=== PATIENT | female | born 1935 | race Caucasian/White ===

== ENCOUNTER 2016-08-29 18:00 | Emergency (ER) | payer MEDICARE, BC, MEDICAID ==
--- NOTE | 2016-08-29 19:16 | Emergency Department Record ---
History of Present Illness - General Chief complaint: Extremity Problem Stated complaint: L ARM INJURY/ FALL Time Seen by Provider: 08/29/16 19:07 Source: Patient Mode of Arrival: Ambulatory Limitations: No limitations - History of Present Illness Initial comments: pt lost footing and fell onto l side. pt denies other injury except l arm and l knee. pt denies hitting head. pt is able to ambulate without difficulty. pt has pain at l elbow MD Complaint: Extremity pain, Extremity swelling Onset/Timin -: Hour(s) Location: Left, Elbow, Hand, Knee History of Same: No Radiation: Distal Severity scale (1-10): 4 Quality: Aching Consistency: Constant Improves with: Nothing Worsens with: Nothing Associated Symptoms: Denies other symptoms - Related Data Home Medications Medication Instructions Recorded Confirmed Last Taken Aspirin, Regular 81 mg PO DAILY 11/30/13 08/29/16 08/29/16 Isosorbide Mononitrate [Imdur] 30 mg PO DAILY 11/30/13 08/29/16 08/29/16 Levothyroxine Sodium [Levoxyl] 50 mcg PO DAILY 11/30/13 08/29/16 08/29/16 Pantoprazole Sodium 40 mg PO DAILY 11/30/13 08/29/16 08/29/16 Psyllium Seed (with Sugar) 1 each PO DAILY 11/30/13 08/29/16 08/29/16 [Metamucil Fiber Wafer] Atorvastatin Calcium 40 mg PO QHS 02/19/15 08/29/16 08/28/16 Calcium Phosphate Trib/Vit D3 1 each PO DAILY 02/19/15 08/29/16 08/29/16 [Citracal + D3 Gummies] Multivit-Min/FA/Ca Carb/Vit K 1 each PO DAILY 02/19/15 08/29/16 08/29/16 [Women's 50+ Daily Tablet] Nitroglycerin [Nitrostat] 0.4 mg SL ASDIR PRN 02/19/15 08/29/16 08/29/16 Fluticasone/Salmeterol [Advair 1 each INH DAILY #180 01/17/16 08/29/16 08/29/16 250-50 Diskus] Previous Rx's Medication Instructions Recorded Hydrocodone/Acetaminophen [[place] 0.5 - 1 tab PO TID PRN #10 tab 08/29/16 5mg/325mg] Allergies Allergy/AdvReac Type Severity Reaction Status Date / Time codeine [CODEINE] Allergy Severe HIVES Verified 08/29/16 18:14 tomato Allergy Severe HIVES Verified 08/29/16 18:14 chocolate flavor Allergy Mild RASH Verified 08/29/16 18:14 strawberry [[place]] Allergy Mild RASH Verified 08/29/16 18:14 Travel Screening - Travel/Exposure Within Last 30 Days Have you traveled within the last 30 days?: No Review of Systems Reviewed: No additional complaints except as noted below Constitutional: Reports: As per HPI. Denies: Chills, Fever, Malaise, Night sweats, Weakness, Weight change Eyes: Reports: As per HPI. Denies: Eye discharge, Eye pain, Photophobia, Vision change ENT: Reports: As per HPI. Denies: Congestion, Dental pain, Ear pain, Epistaxis , Hearing loss, Throat pain Respiratory: Reports: As per HPI. Denies: Cough, Dyspnea, Hemoptysis, Stridor, Wheezes Cardiovascular: Reports: As per HPI. Denies: Arrhythmia, Chest pain, Dyspnea on exertion, Edema, Murmurs, Orthopnea, Palpitations, Paroxysmal nocturnal dyspnea, Rheumatic Fever, Syncope Endocrine: Reports: As per HPI. Denies: Fatigue, Heat or cold intolerance, Polydipsia, Polyuria Gastrointestinal: Reports: As per HPI. Denies: Abdominal pain, Constipation, Diarrhea, Hematemesis, Hematochezia, Melena, Nausea, Vomiting Genitourinary: Reports: As per HPI. Denies: Abnormal menses, Discharge, Dyspareunia, Dysuria, Frequency, Hematuria, Incontinence, Retention, Urgency Musculoskeletal: Reports: As per HPI. Denies: Arthralgia, Back pain, Gout, Joint swelling, Myalgia, Neck pain Skin: Reports: As per HPI. Denies: Bruising, Change in color, Change in hair/ nails, Lesions, Pruritus, Rash Neurological: Reports: As per HPI. Denies: Abnormal gait, Confusion, Headache, Numbness, Paresthesias, Seizure, Tingling, Tremors, Vertigo, Weakness Psychiatric: Reports: As per HPI. Denies: Anxiety, Auditory hallucinations, Depression, Homicidal thoughts, Suicidal thoughts, Visual hallucinations Hematological/Lymphatic: Reports: As per HPI. Denies: Anemia, Blood Clots, Easy bleeding, Easy bruising, Swollen glands Past Medical History - SOCIAL HISTORY Smoking Status: Never smoker Alcohol Use: None Drug Use: None - RESPIRATORY Hx Respiratory Disorders: Yes Hx Asthma: Yes - CARDIOVASCULAR Hx Cardio Disorders: Yes Hx Chest Pain: Yes (2 years ago) - NEURO Hx Neuro Disorders: No - GI Hx GI Disorders: Yes Hx Reflux: Yes - Hx Genitourinary Disorders: No - ENDOCRINE Hx Endocrine Disorders: Yes Hx Thyroid Disease: Yes - MUSCULOSKELETAL Hx Musculoskeletal Disorders: Yes Hx Arthritis: Yes Hx Osteoporosis: Yes - PSYCH Hx Psych Problems: No - HEMATOLOGY/ONCOLOGY Hx Hematology/Oncology Disorders: No Family Medical History Any Significant Family History?: No Physical Exam - General General Appearance: Alert, Oriented x3, Cooperative, Mild distress - Head Head exam: Normal inspection - Eye Eye exam: Normal appearance, PERRL, EOMI Pupils: Normal accommodation - ENT ENT exam: Normal exam, Mucous membranes moist, Normal external ear exam, Normal orophraynx Ear exam: Normal external inspection. negative: External canal tenderness Nasal Exam: Normal inspection. negative: Discharge, Sinus tenderness Mouth exam: Normal external inspection, Tongue normal Teeth exam: Normal inspection. negative: Dental caries Throat exam: Normal inspection. negative: Tonsillar erythema, Tonsillar exudate - Neck Neck exam: Normal inspection, Full ROM. negative: Tenderness - Respiratory Respiratory exam: Normal lung sounds bilaterally. negative: Respiratory distress - Cardiovascular Cardiovascular Exam: Regular rate, Normal rhythm, Normal heart sounds - GI/Abdominal GI/Abdominal exam: Soft, Normal bowel sounds. negative: Tenderness - Rectal Rectal exam: Deferred - exam: Deferred - Extremities Extremities exam: Normal capillary refill, Tenderness. negative: Full ROM Image of Full Body: 1 - tender, swelling, ecchymosis 2 - abrasions - Back Back exam: Reports: Normal inspection, Full ROM. Denies: Muscle spasm, Rash noted, Tenderness - Neurological Neurological exam: Alert, CN II-XII intact, Normal gait, Oriented X3 - Psychiatric Psychiatric exam: Normal affect, Normal mood - Skin Skin exam: Dry, Intact, Normal color, Warm Course Vital Signs 08/29/16 18:09 Temperature 97.7 F Pulse Rate 79 Respiratory 20 Rate Blood Pressure 123/79 Pulse Ox 96 - Reevaluation(s) Reevaluation #1: 08/29/16 20:57 d/w dr canchola Medical Decision Making - Data Complexity MDM Data: X-Ray Ordered and/or Reviewed - Radiology Data Radiology results: Report reviewed, Image reviewed Disposition Disposition: Discharge Clinical Impression: Closed olecranon fracture Qualifiers: Encounter type: initial encounter Laterality: left Qualified Code(s): S52.022A - Displaced fracture of olecranon process without intraarticular extension of left ulna, initial encounter for closed fracture Disposition: Home, Self-Care Condition: (1) Good Instructions: Elbow Fracture in Adults (ED) Additional Instructions: follow up with dr canchola on . ice and elevate. return sooner if worse Prescriptions: Hydrocodone/Acetaminophen [[place] 5mg/325mg] 0.5 - 1 tab PO TID PRN #10 tab PRN Reason: Pain - General Referrals: DINORAH CANCHOLA [DOCTOR OF OSTEOPATH] - [facility] [Provider Group] Forms: Patient Portal Access
[2016-08-29] MEDS: HYDROCODONE/APAP 5/325MG TABLET PO ONE (20:40)
--- NOTE | 2016-09-01 07:28 | RADIOLOGY REPORT ---
EXAM: LEFT ELBOW HISTORY: PATIENT HAS A HISTORY OF FALL. TECHNIQUE: Three views of the left elbow are provided without comparison studies. FINDINGS: There is an oblique fracture through the left olecranon process with approximately 2.4 mm posterior and proximal distraction of the proximal olecranon fracture fragment. Extension to the articular surface is noted. No obvious radial head fracture is noted. The humeral condyles appear grossly intact. Calcified curvilinear density adjacent to the medial epicondyle likely represents an enthesophyte. There is an oval, 1.7 cm density in the region of the antecubital fossa. I suspect this likely represents an intraarticular loose body. Extensive soft tissue swelling is noted over the olecranon process. IMPRESSION: POST TRAUMATIC CHANGES OF THE LEFT ELBOW ARE NOTED DESCRIBED. JOB NUMBER: [id number] [facility]
== END 2016-08-29 21:53 | disposition home or self-care (01) ==
LOC: ER 18:00
DX: S52.022A Displaced fracture of olecranon process without intraarticular extension of left ulna, initial encounter for closed fracture (principal); S80.212A Abrasion, left knee, initial encounter; M79.642 Pain in left hand; W18.09XA Striking against other object with subsequent fall, initial encounter
CPT/HCPCS: 99283; 99284

== ENCOUNTER 2016-09-05 09:02 | Day surgery (SDC) | payer MEDICARE, BC, MEDICAID ==
[~2016-09-05 09:02] MED LIST: ACETAMINOPHEN 1000MG/100 ML PREMIX IV ONE; CEFAZOLIN 1 Gram 50 ML IVPB ONE
[2016-09-05 09:12] LABS: BASO % 0.5 % (0-6); EOS % 3.4 % (0-6); GRAN % 68.8 % (47-80); HEMATOCRIT 43.9 % (35.0-47.0); HEMOGLOBIN 14.8 gm/dl (11.6-16.0); LYMPH % 14.9 % (16-45); MEAN CELL VOLUME 91.8 fl (81-97); MEAN CORPUSCULAR HGB CONC 33.7 g/dl (32-36); MEAN PLATELET VOLUME 10.8 fl (7.4-10.4); MONO % 12.4 % (0-9); PLATELET COUNT 253 K/uL (130-400); RED BLOOD COUNT 4.78 M/uL (3.80-5.40); RED CELL DISTRIBUTION WIDTH 14.2 % (11.5-14.5); WHITE BLOOD COUNT W/O DIFF 9.3 K/uL (4.2-12.2)
[2016-09-05 09:26] LABS: ANION GAP 6.1 (7-16); BLOOD UREA NITROGEN 10 mg/dL (7-17); CARBON DIOXIDE 32.9 mmol/L (22-30); CREATININE 0.7 mg/dL (0.52-1.04); EST GLOMERULAR FILTRATION RATE > 60 ml/min; GLUCOSE,RANDOM 109 mg/dL (70-110)
[2016-09-05] MEDS ORDERED: MORPHINE SULFATE 5 MG/ML PFS IVP ONE ×2 (15:36→15:43)
[2016-09-05] MEDS ORDERED: HYDROCODONE/APAP 5/325MG TABLET PO ONE (15:36)
[2016-09-05] MEDS ORDERED: ONDANSETRON HCL IV 4 MG/2 ML VIAL IVP ONE (15:43)
[2016-09-05] MEDS ORDERED: SEVOFLURANE 250 ML INH ONE (15:43)
[2016-09-05] MEDS ORDERED: PROPOFOL 10 MG/ML VIAL IV ONE (15:43)
[2016-09-05] MEDS ORDERED: MIDAZOLAM HCL 2MG/2ML VIAL IV ONE (15:43)
[2016-09-05] MEDS ORDERED: LIDOCAINE 2% MDV (20MG/ML) 20ML VIAL IV ONE (15:43)
[2016-09-05] MEDS ORDERED: FENTANYL PF 100MCG/2ML VIAL IV ONE (15:43)
--- NOTE | 2016-09-07 11:46 | Operative Note ---
DATE OF SURGERY: 09/05/2016 SURGEON: Andres Martinez DO REFERRING PHYSICIAN: Monica Gurrola MD PREOPERATIVE DIAGNOSIS: Displaced fracture of the left olecranon process of the ulna. POSTOPERATIVE DIAGNOSIS: Displaced fracture of the left olecranon process of the ulna. OPERATION: Open reduction internal fixation left ulna olecranon process. Anesthesia: General. PROCEDURE: This 81-year-old female was taken to the operating room, placed in the supine position on the operating room table. A general anesthetic was administered, and the left upper extremity was elevated. It was prepped with Hibiclens and draped in the usual sterile fashion. It was exsanguinated and the tourniquet inflated to 250 mmHg. An incision was made following the dorsal surface of the ulna to the olecranon and it was curved around the olecranon process. It then extended proximally to the displaced fracture fragment. This was easily identified of course, and it was irrigated and curetted; a large clot removed from the joint. I attempted to reach around to mobilize the loose joint body, but was not able to do so, and it was not further disturbed. The wound was copiously irrigated with lactated Ringer's solution. The edges of the fracture cleaned out by removing debris and a bone clamp was used to reduce the fracture. With the bone clamp held in place and the fracture reduced, a guidewire was passed from the olecranon into the shaft of the proximal ulna. The image intensifier was used to confirm its position. Once this was determined to be satisfactory, the length was measured and a 75 mm cortical screw was advanced across the fracture site. Again, the image intensifier was used to confirm the position and alignment of the fracture fragments, and the fracture was found to be reduced. A #5 FiberWire was used as a [id number] tension band, by making two drill holes on either side of the ulnar shaft, and the suture was passed around the washer, as well as through the holes and a tension band technique was accomplished. This was then tied securely for added support. The wound was again copiously irrigated with lactated Ringer's solution. The subcutaneous tissue was closed with 4-0 Vicryl and the skin with a running 3-0 nylon suture. Sterile dressings were applied with plaster splint immobilization with the elbow at approximately 90 to 100 degrees and the forearm in neutral position. With the plaster splint applied after the sterile dressings, the patient was then taken to the recovery room in satisfactory condition. GROSS PATHOLOGY: This patient actually had a comminuted fracture of the olecranon process. This fracture did have multiple pieces. She had of course, osteopenic bone as one would expect, but the fracture fragments were maintained in anatomic position with the use of the 7.5 mm Synthes screw and [id number] tension band FiberWire. EMELINA
== END 2016-09-05 13:05 | disposition home or self-care (01) ==
LOC: SUR 09:02
PROVIDERS: ATTEND Orthopaedic Surgery
DX: S52.022A Displaced fracture of olecranon process without intraarticular extension of left ulna, initial encounter for closed fracture (principal); E78.00 Pure hypercholesterolemia, unspecified
CPT/HCPCS: 76000; 80048; 85025; J2405

== ENCOUNTER 2016-11-16 13:05 | Emergency (ER) | payer MEDICARE, BC, MEDICAID ==
--- NOTE | 2016-11-16 13:22 | Emergency Department Record ---
History of Present Illness - General Chief complaint: Nausea, Vomiting, Diarrhea Stated complaint: VOMITING,NAUSEA Time Seen by Provider: 11/16/16 13:22 Source: Patient Mode of Arrival: Ambulatory Limitations: No limitations - History of Present Illness Initial comments: The patient is here due to a 2 days hx of nausea, vomiting and loose stools. She was much worse yesterday than today. Presently the nausea has resolved and she denies any abdominal pain. She only reports one episode of vomiting and loost stool early this morning and none since. There has been no abdominal pain , fever, chills, back pain, CP, SOB, or dysuria. MD complaint: Diarrhea, Nausea, Vomiting Onset/Timin -: Days(s) Consistency: Intermittent Improves with: Medication Associated Symptoms: Nausea/vomiting - Related Data Home Medications Medication Instructions Recorded Confirmed Last Taken Aspirin, Regular 81 mg PO DAILY 11/30/13 11/16/16 11/16/16 Isosorbide Mononitrate [Imdur] 30 mg PO DAILY 11/30/13 11/16/16 11/16/16 Levothyroxine Sodium [Levoxyl] 50 mcg PO DAILY 11/30/13 11/16/16 11/16/16 Pantoprazole Sodium 40 mg PO DAILY 11/30/13 11/16/16 11/16/16 Psyllium Seed (with Sugar) 1 each PO DAILY 11/30/13 11/16/16 11/16/16 [Metamucil Fiber Wafer] Atorvastatin Calcium 40 mg PO QHS 02/19/15 11/16/16 11/16/16 Calcium Phosphate Trib/Vit D3 1 each PO DAILY 02/19/15 11/16/16 11/16/16 [Citracal + D3 Gummies] Multivit-Min/FA/Ca Carb/Vit K 1 each PO DAILY 02/19/15 11/16/16 11/16/16 [Women's 50+ Daily Tablet] Nitroglycerin [Nitrostat] 0.4 mg SL ASDIR PRN 02/19/15 11/16/16 11/16/16 Fluticasone/Salmeterol [Advair 1 each INH DAILY #180 01/17/16 11/16/16 11/16/16 250-50 Diskus] Previous Rx's Medication Instructions Recorded Hydrocodone/Acetaminophen [[place] 0.5 - 1 tab PO TID PRN #10 tab 08/29/16 5mg/325mg] Nitrofurantoin [place] [Macrobid] 100 mg PO BID #10 capsule 11/16/16 Ondansetron [Zofran Odt] 4 mg SL .Q4-6H PRN #12 tab.rapdis 11/16/16 Allergies Allergy/AdvReac Type Severity Reaction Status Date / Time codeine [CODEINE] Allergy Severe HIVES Verified 11/16/16 13:12 tomato Allergy Severe HIVES Verified 11/16/16 13:12 chocolate flavor Allergy Mild RASH Verified 11/16/16 13:12 strawberry [[place]] Allergy Mild RASH Verified 11/16/16 13:12 Travel Screening - Travel/Exposure Within Last 30 Days Have you traveled within the last 30 days?: No - Travel/Exposure Within Last Year Have you traveled outside the [place] 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[facility]) 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,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) - NEURO Hx Neuro Disorders: No Hx Neuropathy: Yes (occas numbness in left hand) - GI Hx GI Disorders: Yes Hx Reflux: Yes Hx Hepatitis/Jaundice: Yes (age 20s-"yellow jaundice") Hx of Polyps: Yes - Hx Genitourinary Disorders: No - ENDOCRINE Hx Endocrine Disorders: Yes Hx Thyroid Disease: Yes (hypoactive) - MUSCULOSKELETAL Hx Musculoskeletal Disorders: Yes Hx Arthritis: Yes (arms/hands) Hx Osteoporosis: Yes Comment:: fx left elbow now - PSYCH Hx Psych Problems: No - HEMATOLOGY/ONCOLOGY Hx Hematology/Oncology Disorders: No Family Medical History Any Significant Family History?: Yes Hx Resp Disorders: Father, Mother Physical Exam - General General Appearance: Alert, Oriented x3, Cooperative, No acute distress - Head Head exam: Atraumatic, Normocephalic, Normal inspection - Eye Eye exam: Normal appearance, PERRL - ENT Throat exam: Normal inspection. negative: Tonsillar erythema, Tonsillar exudate - Neck Neck exam: Normal inspection, Full ROM. negative: Tenderness - Respiratory Respiratory exam: Normal lung sounds bilaterally. negative: Respiratory distress - Cardiovascular Cardiovascular Exam: Regular rate, Normal rhythm, Normal heart sounds - GI/Abdominal GI/Abdominal exam: Soft, Normal bowel sounds. negative: Distended, Rebound, Rigid, Tenderness (The abdomen is very soft and nontender in all 4 quads.) - Extremities Extremities exam: Normal inspection, Full ROM, Normal capillary refill. negative: Tenderness - Neurological Neurological exam: Normal gait. negative: Abnormal gait Course Vital Signs 11/16/16 13:15 Temperature 99.1 F Pulse Rate 119 H Respiratory 20 Rate Blood Pressure 139/88 Pulse Ox 94 L - Reevaluation(s) Reevaluation #1: The patient is feeling better. She denies any nausea or AP and is feeling much improved. 11/16/16 14:17 Reevaluation #2: The patient is doing much better at this time. She denies any AP, nausea, or vomiting and is taking PO fluids well. I did discuss her lab results with her and the need for F/U. Her UA did have some WBC's in it but it was clearly contaminated. We will place her on macrobid for a presumed mild UTI and have her F/U with her PCP next week. 11/16/16 15:11 Medical Decision Making - Data Complexity MDM Data: Labs Ordered and/or Reviewed - Lab Data Result diagrams: 11/16/16 13:40 11/16/16 13:40 Disposition Disposition: Discharge Clinical Impression: Gastroenteritis Disposition: Home, Self-Care Condition: (2) Stable Instructions: Acute Nausea and Vomiting (ED) Additional Instructions: Please use the Zofran for nausea and take the Macrobid as directed. Please see your PCP early next week for recheck and call today for an appointment. Return to the ER for any increased nausea, any abdominal pain or return of the vomiting. Prescriptions: Nitrofurantoin [place] [Macrobid] 100 mg PO BID #10 capsule Ondansetron [Zofran Odt] 4 mg SL .Q4-6H PRN #12 tab.rapdis PRN Reason: Nausea Forms: Patient Portal Access Time of Disposition: 15:14
[2016-11-16] MEDS ORDERED: ONDANSETRON HCL IV 4 MG/2 ML VIAL IV ONE (13:27)
[2016-11-16] MEDS ORDERED: 0.9 % SODIUM CHLORIDE 1,000 ML BAG IV ONE (13:27)
[2016-11-16 13:47] LABS: BASO % 0.3 % (0-6); EOS % 0.1 % (0-6); GRAN % 80.9 % (47-80); HEMATOCRIT 45.9 % (35.0-47.0); HEMOGLOBIN 15.4 gm/dl (11.6-16.0); LYMPH % 5.9 % (16-45); MEAN CELL VOLUME 89.3 fl (81-97); MEAN CORPUSCULAR HGB CONC 33.6 g/dl (32-36); MEAN PLATELET VOLUME 11.1 fl (7.4-10.4); MONO % 12.8 % (0-9); PLATELET COUNT 188 K/uL (130-400); RED BLOOD COUNT 5.14 M/uL (3.80-5.40); RED CELL DISTRIBUTION WIDTH 13.2 % (11.5-14.5); WHITE BLOOD COUNT W/O DIFF 7.9 K/uL (4.2-12.2)
[2016-11-16 14:00] LABS: ALBUMIN 4.1 gm/dL (3.5-5.0); ALKALINE PHOSPHATASE 102 U/L (38-126); ALT/SGPT 47 U/L (9-52); ANION GAP 9.7 (7-16); AST/SGOT 43 U/L (14-36); BLOOD UREA NITROGEN 16 mg/dL (7-17); CARBON DIOXIDE 25.3 mmol/L (22-30); CREATININE 0.7 mg/dL (0.52-1.04); EST GLOMERULAR FILTRATION RATE > 60 ml/min; GLUCOSE,RANDOM 125 mg/dL (70-110); LIPASE 59 U/L (23-300); TOTAL PROTEIN 6.9 gm/dL (6.3-8.2)
[2016-11-16] MEDS ORDERED: ACETAMINOPHEN 325 MG TAB PO ONE (14:12)
[2016-11-16 14:45] LABS: URINE APPEARANCE CLEAR; URINE BILIRUBIN NEGATIVE (NEGATIVE); URINE BLOOD NEGATIVE (NEGATIVE); URINE COLOR YELLOW; URINE GLUCOSE (UA) NEGATIVE (NEGATIVE); URINE KETONE TRACE (NEGATIVE); URINE LEUKOCYTE ESTERASE SMALL (NEGATIVE); URINE NITRITE NEGATIVE (NEGATIVE); URINE PROTEIN TRACE (NEGATIVE); URINE UROBILINOGEN 0.2 E.U./dL (0.20 - 1.00)
[2016-11-16 14:55] LABS: URINE BACTERIA 1+; URINE MUCUS LIGHT; URINE RBC NONE SEEN (NONE SEEN); URINE WBC 36 - 50 (0-2/hpf)
[2016-11-16] MEDS ORDERED: NITROFURANTOIN MONO 100 MG CAPSULE PO ONE (15:08)
== END 2016-11-16 15:27 | disposition home or self-care (01) ==
LOC: ER 13:05
DX: R11.2 Nausea with vomiting, unspecified (principal); R19.7 Diarrhea, unspecified
CPT/HCPCS: 99284; 96374; 96361; 96367; 99283; 83690; 85025; 80076; 80048; 81001; J2405; J7030

== ENCOUNTER 2017-02-21 06:02 | Emergency (ER) | payer MEDICARE, BC ==
--- NOTE | 2017-02-21 06:16 | Emergency Department Record ---
History of Present Illness - General Chief complaint: ENT Stated complaint: EAR PAIN Time Seen by Provider: 02/21/17 06:14 Source: Patient Mode of Arrival: Ambulatory Limitations: No limitations - History of Present Illness Initial comments: The patient is here due to L ear pain for a day. She believes she has a piece of her hearing aid stuck in her L ear. She denies any other issues. MD complaint: Ear pain Onset/Timin -: Days(s) Location: L ear Severity: Moderate Severity scale (1-10): 6 Consistency: Constant, Getting worse Improves with: None Worsens with: None - Related Data Allergies Allergy/AdvReac Type Severity Reaction Status Date / Time codeine [CODEINE] Allergy Severe HIVES Verified 11/16/16 13:12 tomato Allergy Severe HIVES Verified 11/16/16 13:12 chocolate flavor Allergy Mild RASH Verified 11/16/16 13:12 strawberry [[place]] Allergy Mild RASH Verified 11/16/16 13:12 Travel Screening - Travel/Exposure Within Last 30 Days Have you traveled within the last 30 days?: No Review of Systems Constitutional: Denies: Chills, Fever Past Medical History - SOCIAL HISTORY Smoking Status: Never smoker Alcohol Use: None Drug Use: None - RESPIRATORY Hx Respiratory Disorders: Yes Hx Asthma: Yes (well controlled) Hx Pneumonia: Yes (as baby) - CARDIOVASCULAR Hx Cardio Disorders: Yes Hx Chest Pain: Yes (-2yrs ago only -none since.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[facility]) 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,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) - NEURO Hx Neuro Disorders: No Hx Neuropathy: Yes (occas numbness in left hand) - GI Hx GI Disorders: Yes Hx Reflux: Yes Hx Hepatitis/Jaundice: Yes (age 20s-"yellow jaundice") Hx of Polyps: Yes - Hx Genitourinary Disorders: No - ENDOCRINE Hx Endocrine Disorders: Yes Hx Thyroid Disease: Yes (hypoactive) - MUSCULOSKELETAL Hx Musculoskeletal Disorders: Yes Hx Arthritis: Yes (arms/hands) Hx Osteoporosis: Yes Comment:: fx left elbow now - PSYCH Hx Psych Problems: No - HEMATOLOGY/ONCOLOGY Hx Hematology/Oncology Disorders: No Family Medical History Any Significant Family History?: Yes Hx Resp Disorders: Father, Mother Physical Exam - General General Appearance: Alert, Oriented x3, Cooperative, No acute distress - Head Head exam: Atraumatic, Normocephalic - Eye Eye exam: Normal appearance, PERRL - ENT ENT exam: negative: TM's normal bilaterally (There is a round hearing aid FB deep in the L ear canal. There are no signs of any infection.) Throat exam: Normal inspection. negative: Tonsillar erythema, Tonsillar exudate - Neck Neck exam: Normal inspection, Full ROM. negative: Tenderness Course Vital Signs 02/21/17 06:07 Temperature 97.4 F L Pulse Rate [ 80 Pulse Ox Probe] Respiratory 20 Rate Blood Pressure 149/79 [Right Arm] Pulse Ox 94 L - Reevaluation(s) Reevaluation #1: I did explain to the patient that due to the position of the FB and size we will not be able to get it out. She is to F/U with ENT for removal today and is to call [facility]. 02/21/17 06:23 Disposition Disposition: Discharge Clinical Impression: Ear foreign body Qualifiers: Encounter type: initial encounter Laterality: left Qualified Code(s): T16.2XXA - Foreign body in left ear, initial encounter Disposition: Home, Self-Care Condition: (2) Stable Instructions: Ear Foreign Body (ED) Additional Instructions: Please keep the L ear dry. Please call [facility] for an appointment to get the foreign body removed. Call [phone]. Forms: Patient Portal Access Time of Disposition: 06:25 Quality - Quality Measures Quality Measures: N/A - Blood Pressure Screening View Details: Yes Does Patient Have Any of the Following: No Blood Pressure Classification: Hypertensive Reading Systolic Measurement: 149 Diastolic Measurement: 79 Screening for High Blood Pressure: < Pre-Hypertensive BP, F/U Documented > [ [id number]] Pre-Hypertensive Follow-up Interventions: Referral to alternative/primary care provider.
== END 2017-02-21 06:37 | disposition home or self-care (01) ==
LOC: ER 06:02
DX: T16.2XXA Foreign body in left ear, initial encounter (principal)
CPT/HCPCS: 99282

== ENCOUNTER 2017-04-24 06:32 | Emergency (ER) | payer MEDICARE, BC ==
--- NOTE | 2017-04-24 07:36 | Emergency Department Record ---
History of Present Illness - General Chief Complaint: Fall Injury Stated Complaint: FALL Time Seen by Provider: 04/24/17 07:09 Source: Patient Mode of Arrival: Ambulatory Limitations: No limitations - History of Present Illness Initial Comments: pt fell in bathroom 6 hrs ago hitting back of head in [email or web address] loc. 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 Place Fall Occurred: Home Loss of Consciousness: Unsure Symptoms Prior to Fall: None Location: Head, Neck Location - Extremities: Left: Shoulder Severity: Mild Severity scale (1-10): 1 Context: Tripped/slipped - [place]indy Coma Scale Eye Response: (4) Open spontaneously Motor Response: (6) Obeys commands Verbal Response: (5) Oriented [place] Total: 15 - Related Data Allergies Allergy/AdvReac Type Severity Reaction Status Date / Time codeine [CODEINE] Allergy Severe HIVES Verified 04/24/17 06:42 tomato Allergy Severe HIVES Verified 04/24/17 06:42 chocolate flavor Allergy Mild RASH Verified 04/24/17 06:42 strawberry [[place]] Allergy Mild RASH Verified 04/24/17 06:42 Travel Screening - Travel/Exposure Within Last 30 Days Have you traveled within the last 30 days?: No Review of Systems Reviewed: No additional complaints except as noted below Constitutional: Reports: As per HPI. Denies: Chills, Fever, Malaise, Night sweats, Weakness, Weight change Eyes: Reports: As per HPI. Denies: Eye discharge, Eye pain, Photophobia, Vision change ENT: Reports: As per HPI. Denies: Congestion, Dental pain, Ear pain, Epistaxis , Hearing loss, Throat pain Respiratory: Reports: As per HPI. Denies: Cough, Dyspnea, Hemoptysis, Stridor, Wheezes Cardiovascular: Reports: As per HPI. Denies: Arrhythmia, Chest pain, Dyspnea on exertion, Edema, Murmurs, Orthopnea, Palpitations, Paroxysmal nocturnal dyspnea, Rheumatic Fever, Syncope Endocrine: Reports: As per HPI. Denies: Fatigue, Heat or cold intolerance, Polydipsia, Polyuria Gastrointestinal: Reports: As per HPI. Denies: Abdominal pain, Constipation, Diarrhea, Hematemesis, Hematochezia, Melena, Nausea, Vomiting Genitourinary: Reports: As per HPI. Denies: Abnormal menses, Discharge, Dyspareunia, Dysuria, Frequency, Hematuria, Incontinence, Retention, Urgency Musculoskeletal: Reports: As per HPI. Denies: Arthralgia, Back pain, Gout, Joint swelling, Myalgia, Neck pain Skin: Reports: As per HPI. Denies: Bruising, Change in color, Change in hair/ nails, Lesions, Pruritus, Rash Neurological: Reports: As per HPI. Denies: Abnormal gait, Confusion, Headache, Numbness, Paresthesias, Seizure, Tingling, Tremors, Vertigo, Weakness Psychiatric: Reports: As per HPI. Denies: Anxiety, Auditory hallucinations, Depression, Homicidal thoughts, Suicidal thoughts, Visual hallucinations Hematological/Lymphatic: Reports: As per HPI. 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) 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,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) - NEURO Hx Neuro Disorders: No Hx Neuropathy: Yes (occas numbness in left hand) - GI Hx GI Disorders: Yes Hx Reflux: Yes Hx Hepatitis/Jaundice: Yes (age 20s-"yellow jaundice") Hx of Polyps: Yes - Hx Genitourinary Disorders: No - ENDOCRINE Hx Endocrine Disorders: Yes Hx Thyroid Disease: Yes (hypoactive) - MUSCULOSKELETAL Hx Musculoskeletal Disorders: Yes Hx Arthritis: Yes (arms/hands) Hx Osteoporosis: Yes Comment:: fx left elbow now - PSYCH Hx Psych Problems: No - HEMATOLOGY/ONCOLOGY Hx Hematology/Oncology Disorders: No Family Medical History Any Significant Family History?: Yes Hx Resp Disorders: Father, Mother Physical Exam - General General Appearance: Alert, Oriented x3, Cooperative, Mild distress - Head Head exam: Normal inspection Head exam detail: Abrasion, General tenderness - Eye Eye exam: Normal appearance, PERRL Pupils: Normal accommodation - ENT ENT exam: Normal exam, Mucous membranes moist, Normal external ear exam, Normal orophraynx Ear exam: Normal external inspection. negative: External canal tenderness Nasal Exam: Normal inspection. negative: Discharge, Sinus tenderness Mouth exam: Normal external inspection, Tongue normal Teeth exam: Normal inspection. negative: Dental caries Throat exam: Normal inspection. negative: Tonsillar erythema, Tonsillar exudate - Neck Neck exam: Full ROM, Tenderness - Respiratory Respiratory exam: Normal lung sounds bilaterally. negative: Respiratory distress - Cardiovascular Cardiovascular Exam: Regular rate, Normal rhythm, Normal heart sounds - GI/Abdominal GI/Abdominal exam: Soft, Normal bowel sounds. negative: Tenderness - Rectal Rectal exam: Deferred - exam: Deferred - Extremities Extremities exam: Normal inspection, Full ROM, Normal capillary refill. negative: Tenderness - Back Back exam: Reports: Normal inspection, Full ROM. Denies: Muscle spasm, Rash noted, Tenderness - Neurological Neurological exam: Alert, Normal gait, Oriented X3, Reflexes normal - Psychiatric Psychiatric exam: Normal affect, Normal mood - Skin Skin exam: Dry, Intact, Normal color, Warm Course Vital Signs 04/24/17 06:36 Temperature 97.6 F Pulse Rate 80 Respiratory 14 Rate Blood Pressure 155/76 Pulse Ox 95 Disposition Disposition: Discharge Clinical Impression: Multiple contusions Head injury Qualifiers: Encounter type: initial encounter Qualified Code(s): S09.90XA - Unspecified injury of head, initial encounter Disposition: Home Health Service Condition: (1) Good Instructions: Fall Prevention for Older Adults (ED), Head Injury (ED), Contusion in Adults (ED) Additional Instructions: follow up with family doctor. return sooner if worse. Forms: Patient Portal Access Quality - Quality Measures Quality Measures: N/A - Blood Pressure Screening Does Patient Have Any of the Following: No Blood Pressure Classification: Hypertensive Reading Systolic Measurement: 155 Diastolic Measurement: 76 Screening for High Blood Pressure: < First Hypertensive BP, F/U Documented > [ [id number]] First Hypertensive Follow-up Interventions: Follow-up with rescreen GT 1 day and LT 4 weeks.
--- NOTE | 2017-04-24 15:10 | RADIOLOGY REPORT ---
EXAM: LEFT SHOULDER HISTORY: PATIENT FELL WITH LEFT SHOULDER PAIN. TECHNIQUE: Four views of the left shoulder were obtained. Comparison: None. Encounter: Initial. FINDINGS: There is advanced degenerative arthritis at the glenohumeral joint. Mild spurring at the acromioclavicular joint. No definite acute fracture or dislocation of the left shoulder identified. Diffuse osteopenia is seen consistent with osteoporosis. IMPRESSION: 1. ADVANCED DEGENERATIVE ARTHRITIS LEFT SHOULDER. 2. OSTEOPOROSIS. 3. NO DEFINITE FRACTURE IDENTIFIED. JOB [facility]BER: [id number] [facility]
--- NOTE | 2017-04-25 05:55 | CT SCAN REPORT ---
DATE: 04/24/2017 at 7:29 a.m. EXAM: HEAD CT. HISTORY: The patient fell with head and neck pain. Right-hand dominant. TECHNIQUE: Axial CT scan of the head performed without intravenous contrast. COMPARISON: Head CT dated 11/10/2009. FINDINGS: No definite acute intracranial hemorrhage identified. Some basal ganglia calcification is again seen. No focal mass effect or midline shift evident. Generalized atrophy with chronic-appearing deep white matter changes as before, nonspecific but likely representing some chronic small-vessel deep white matter ischemic disease. 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 No definite acute infarct or intracranial mass lesion seen. Deviation of the nasal septum to the right, probably with galen bullosa formation in the left middle turbinate. Mild membrane thickening posteriorly in the sphenoid sinus bilaterally. No depressed calvarial fracture is evident. IMPRESSION: 1. 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 2. NO DEFINITE ACUTE INTRACRANIAL HEMORRHAGE OR FOCAL MASS EFFECT IDENTIFIED. 3. MEMBRANE THICKENING IN THE SPHENOID SINUS POSTERIORLY BILATERALLY. 4. DEVIATION OF THE NASAL SEPTUM TO THE RIGHT WITH GALEN BULLOSA FORMATION OF THE LEFT MIDDLE TURBINATE. JOB NUMBER: [id number] [facility]
--- NOTE | 2017-04-25 21:24 | CT SCAN REPORT ---
EXAM: CT SCAN CERVICAL SPINE WO CONTRAST HISTORY: PATIENT FELL WITH NECK PAIN. TECHNIQUE: Axial CT scan of the entire cervical spine performed without IV contrast. COMPARISON: No cervical study with which to compare. ENCOUNTER: Initial. FINDINGS: No apical pneumothorax is evident. Some motion artifact is incidentally noted. No definite fracture of the cervical spine identified. No prevertebral soft tissue swelling is evident. There is fusion of the C2 and C3 vertebrae with a rudimentary C2-3 interspace. There is narrowing of the third through the sixth cervical interspaces with associated hypertrophic spurring and prominent facet joint arthropathy at multiple levels. There is some mild ligamentous calcification posteriorly in the neck. Prominent degenerative change at the odontoid-anterior arch of C1 articulation as well. Multilevel foraminal stenosis and there is mild central stenosis at the C3-4, C4-5, and C5- 6 levels. IMPRESSION: 1. NO DEFINITE FRACTURE OR PREVERTEBRAL SOFT TISSUE SWELLING SEEN IN THE CERVICAL SPINE. 2. MULTILEVEL DEGENERATIVE CHANGE IN THE CERVICAL SPINE. 3. FUSION OF THE C2-3 VERTEBRAE. JOB NUMBER: [id number] [facility]
== END 2017-04-24 09:17 | disposition home health service (06) ==
LOC: ER 06:32
DX: S09.90XA Unspecified injury of head, initial encounter (principal); M54.2 Cervicalgia; M25.512 Pain in left shoulder; W18.2XXA Fall in (into) shower or empty bathtub, initial encounter; Y92.002 Bathroom of unspecified non-institutional (private) residence as the place of occurrence of the external cause
CPT/HCPCS: 70450; 72125; 99283; 99284

== ENCOUNTER 2018-05-10 10:29 | Emergency (ER) | payer MEDICARE, BC ==
[2018-05-10] MEDS ORDERED: ACETAMINOPHEN 325 MG TAB PO ONE (11:19)
[2018-05-10 11:26] LABS: BASO % 0.5 % (0-6); EOS % 3.4 % (0-6); GRAN % 61.7 % (47-80); HEMATOCRIT 47.3 % (35.0-47.0); HEMOGLOBIN 15.8 gm/dl (11.6-16.0); LYMPH % 23.2 % (16-45); MEAN CELL VOLUME 89.6 fl (81-97); MEAN CORPUSCULAR HEMOGLOBIN 29.9 pg (27-33); MEAN CORPUSCULAR HGB CONC 33.4 g/dl (32-36); MEAN PLATELET VOLUME 11.6 fl (7.4-10.4); MONO % 11.2 % (0-9); PLATELET COUNT 218 K/uL (130-400); RED BLOOD COUNT 5.28 M/uL (3.80-5.40); WHITE BLOOD COUNT W/O DIFF 8.5 K/uL (4.2-12.2)
[2018-05-10 11:34] LABS: BLOOD UREA NITROGEN 12 mg/dL (8-23)
[2018-05-10 11:35] LABS: CREATININE 0.7 mg/dL (0.5-0.9); EST GLOMERULAR FILTRATION RATE > 60 mL/min; TOTAL PROTEIN 6.6 g/dL (6.6-8.7)
[2018-05-10 11:37] LABS: GLUCOSE,RANDOM 109 mg/dL (74-109)
--- NOTE | 2018-05-10 11:38 | Emergency Department Record ---
History of Present Illness - General Chief Complaint: Chest Pain Stated Complaint: CHEST PAIN Time Seen by Provider: 05/10/18 10:48 Source: Patient Mode of Arrival: Ambulatory Limitations: No limitations - History of Present Illness Initial Comments: The patient is here due to L upper back pain and shoulder pain for a week which got worse yesterday. The pain is worse with movement and bending. She also has had some chest aching with bending also. There has been no SOB, THOMAS, sweating or nausea. She also has noticed the pain is worse in the shoulder when she squeezes it. MD Complaint: Other Onset/Timin -: Week(s) Pain Radiation: LUE, Back Severity: Mild Severity scale (1-10): 1 Quality: Heaviness Consistency: Constant Improves With: Nothing Worsens With: Exertion, Movement Treatments Prior to Arrival: None - Related Data Allergies Allergy/AdvReac Type Severity Reaction Status Date / Time codeine [CODEINE] Allergy Severe HIVES Verified 04/24/17 06:42 tomato Allergy Severe HIVES Verified 04/24/17 06:42 chocolate flavor Allergy Mild RASH Verified 04/24/17 06:42 strawberry [[place]] Allergy Mild RASH Verified 04/24/17 06:42 Travel Screening - Travel/Exposure Within Last 30 Days Have you traveled within the last 30 days?: No Review of Systems Constitutional: Denies: Chills, Fever Eyes: Denies: Eye discharge ENT: Denies: Congestion Respiratory: Denies: Cough, Dyspnea Cardiovascular: Reports: Chest pain. 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[facility]) 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,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) - NEURO Hx Neuro Disorders: No Hx Neuropathy: Yes (occas numbness in left hand) - GI Hx GI Disorders: Yes Hx Reflux: Yes Hx Hepatitis/Jaundice: Yes (age 20s-"yellow jaundice") Hx of Polyps: Yes - Hx Genitourinary Disorders: No - ENDOCRINE Hx Endocrine Disorders: Yes Hx Thyroid Disease: Yes (hypoactive) - MUSCULOSKELETAL Hx Musculoskeletal Disorders: Yes Hx Arthritis: Yes (arms/hands) Hx Osteoporosis: Yes Comment:: fx left elbow now - PSYCH Hx Psych Problems: No - HEMATOLOGY/ONCOLOGY Hx Hematology/Oncology Disorders: No Family Medical History Any Significant Family History?: Yes Hx Resp Disorders: Father, Mother Physical Exam - General General Appearance: Alert, Oriented x3, Cooperative, No acute distress - Head Head exam: Atraumatic, Normocephalic, Normal inspection - Eye Eye exam: Normal appearance, PERRL, EOMI - ENT Throat exam: Normal inspection. negative: Tonsillar erythema, Tonsillar exudate - Neck Neck exam: Normal inspection, Full ROM. negative: Tenderness - Respiratory Respiratory exam: Normal lung sounds bilaterally, Chest wall tenderness. negative: Respiratory distress - Cardiovascular Cardiovascular Exam: Regular rate, Normal rhythm, Normal heart sounds - GI/Abdominal GI/Abdominal exam: Soft, Normal bowel sounds. negative: Tenderness - Extremities Extremities exam: Normal inspection, Full ROM, Normal capillary refill. negative: Tenderness - Back Back exam: Reports: Normal inspection, Full ROM, Other (The pain is very reproducible to palpation over the L upper back and shoulder. It also is reproduced with palpation of the chest wall.). Denies: Muscle spasm, Rash noted , Tenderness - Neurological Neurological exam: Alert, Normal gait. negative: Abnormal gait, Motor sensory deficit Course Vital Signs 05/10/18 10:32 Temperature 97.9 F Pulse Rate 81 Respiratory 18 Rate Blood Pressure 161/76 Pulse Ox 96 - Reevaluation(s) Reevaluation #1: The patient is doing very well at this time. She states her body pain is improved with the Tylenol. I did discuss the issues with the chest wall pain and the need to not exercise for a few days and to use Tylenol for pain. 05/10/18 12:23 Medical Decision Making - Data Complexity MDM Data: Labs Ordered and/or Reviewed, X-Ray Ordered and/or Reviewed, EKG Ordered and/or Reviewed - Lab Data Result diagrams: 05/10/18 10:45 05/10/18 10:45 Lab Results 05/10/18 05/10/18 Range/Units 10:45 10:45 WBC 8.5 (4.2-12.2) K/uL RBC 5.28 (3.80-5.40) M/uL Hgb 15.8 (11.6-16.0) gm/dl Hct 47.3 H (35.0-47.0) % MCV 89.6 (81-97) fl MCH 29.9 (27-33) pg MCHC 33.4 (32-36) g/dl RDW 13.0 (11.5-14.5) % Plt Count 218 (130-400) K/uL MPV 11.6 H (7.4-10.4) fl Gran % 61.7 (47-80) % Lymphocytes % 23.2 (16-45) % Monocytes % 11.2 H (0-9) % Eosinophils % 3.4 (0-6) % Basophils % 0.5 (0-6) % Calcium 9.4 (8.8-10.2) mg/dL - EKG Data -: EKG Interpreted by [place] EKG: No Acute Changes, Normal EKG - Radiology Data Radiology results: Report reviewed (CXR: No acute changes.) Disposition Disposition: Discharge Clinical Impression: Chest wall pain Disposition: Home, Self-Care Condition: (2) Stable Instructions: Chest Wall Pain (ED) Additional Instructions: Please rest for 3 days and use Tylenol for pain. Please see your family doctor for recheck in 1-2 weeks. Return to the ER for any worsening pain, fever, cough , or shortness of breath. Forms: Patient Portal Access Time of Disposition: 12:25 Quality - Quality Measures Quality Measures: N/A - Blood Pressure Screening View Details: Yes Does Patient Have Any of the Following: Active Dx of HTN Blood Pressure Classification: Hypertensive Reading Systolic Measurement: 161 Diastolic Measurement: 76 Screening for High Blood Pressure: Patient Exclusion, Hx of HTN [G9744]
[2018-05-10 11:40] LABS: ALB/GLOB RATIO 1.8 (1.1-1.8); ALBUMIN 4.2 g/dL (4.0-5.0); ALKALINE PHOSPHATASE 97 U/L (35-104); ALT/SGPT 21 U/L (<33); AST/SGOT 23 U/L (10.0-35.0); CREATINE PHOSPHOKINASE 76 U/L (26-192)
[2018-05-10 11:42] LABS: CKMB 2.2 ng/mL (<3.77)
--- NOTE | 2018-05-12 18:22 | RADIOLOGY REPORT ---
EXAM: CHEST 2 VIEWS HISTORY: PAIN. TECHNIQUE: Frontal and lateral views of the chest were performed. COMPARISON: 05/28/2016. FINDINGS: Heart size is normal. No pulmonary vascular congestion. No infiltrate or pleural effusion. IMPRESSION: NO ACUTE DISEASE PROCESS. JOB NUMBER: [id number] [facility]
== END 2018-05-10 12:40 | disposition home or self-care (01) ==
LOC: ER 10:29
DX: R07.89 Other chest pain (principal); M25.512 Pain in left shoulder; I10 Essential (primary) hypertension
CPT/HCPCS: 71046; 80053; 82550; 82553; 84484; 85025; 93005; 93010; 99284

== ENCOUNTER 2018-07-29 07:26 | Day surgery (SDC) | payer MEDICARE, BC ==
[~2018-07-29 07:26] MED LIST changes: +ACETAMINOPHEN 1,000 MG/100 ML BTL IV ONE; -ACETAMINOPHEN 1000MG/100 ML PREMIX IV ONE; -CEFAZOLIN 1 Gram 50 ML IVPB ONE; +FAMOTIDINE 20MG TABLET PO ONE; +MECLIZINE 25 MG TABLET PO ONE; +METOCLOPRAMIDE 10 MG TABLET PO ONE
[2018-07-29] MEDS ORDERED: HYDROCODONE/APAP 5/325MG TABLET PO ONE (07:27)
[2018-07-29] MEDS ORDERED: SEVOFLURANE 250 ML INH ONE (07:27)
[2018-07-29] MEDS ORDERED: LABETALOL HCL 5MG/ML, 20ML VIAL IV ONE (07:27)
[2018-07-29] MEDS ORDERED: FENTANYL PF 100MCG/2ML VIAL IV ONE (07:27)
[2018-07-29] MEDS ORDERED: LIDOCAINE 2% MDV (20MG/ML) 20ML VIAL IV ONE (07:27)
[2018-07-29] MEDS ORDERED: GLYCOPYRROLATE 0.2 MG/ML ML IV ONE (07:27)
[2018-07-29] MEDS ORDERED: ROCURONIUM BROMIDE 50MG/5ML VIAL IV ONE (07:27)
[2018-07-29] MEDS ORDERED: NEOSTIGMINE 1 MG/1 ML,10ML VIAL IV ONE (07:27)
[2018-07-29] MEDS ORDERED: BUPIVACAINE 0.25% W/EPI MPF 30ML VIAL IVP ONE (07:27)
[2018-07-29] MEDS ORDERED: PROPOFOL 10 MG/ML VIAL IV ONE (07:27)
--- NOTE | 2018-07-30 10:10 | Operative Note ---
DATE OF SURGERY: 07/29/2018 Surgeon: Keo Mercado DO PREOPERATIVE DIAGNOSIS: Cholelithiasis with chronic cholecystitis. POSTOPERATIVE DIAGNOSIS: Cholelithiasis with chronic cholecystitis. OPERATION: Laparoscopic cholecystectomy. PROCEDURE: The patient is an 83-year-old female who was brought to the operating room and placed in a supine position. General anesthesia was administered per the department of anesthesia. The patient's abdomen was prepped and draped in the usual fashion. Adequate timeout was performed. She did receive preoperative antibiotic as well as DVT prophylaxis. The infraumbilical region was anesthetized with a total of 5 mL of 0.25% Sensorcaine with epinephrine. A 2 cm infraumbilical incision was made. This was carried down to the anterior rectus fascia. This was incised. Adrian clamps were placed on the fascial edges and brought up into the wound. Stay sutures of 0 Vicryl were placed. Posterior rectus sheath was identified and incised. The peritoneal cavity was entered bluntly. At this time, a 10 mm blunt Gwyn port was placed. Adequate pneumoperitoneum was established. Under direct visualization, additional 5 mm epigastric and two 5 mm right subcostal ports were placed. The patient was then rotated into steep reverse Trendelenburg with rotation to left. The gallbladder was identified. It was noted to be densely covered with omentum. The top of the gallbladder was identified. This anterior omentum was swept down. Further cephalad and lateral retraction was applied. The hepatocystic triangle was thoroughly dissected out. There was no aberrant anatomy, no posterior ductal structures. The cystic duct and cystic artery were clearly identified. Each one was doubly clipped and cut in a standard fashion. Gallbladder essentially peeled off the liver bed. This was extracted through the umbilical port. Right upper quadrant was rechecked and found to be hemostatic. No bleeding. No bile leak. No bowel injury noted. The patient was leveled out. The pneumoperitoneum was released. All ports were removed. The fascia was closed with 0 Vicryl in a [id number] fashion. The skin at all ports was closed with 4-0 Vicryl. She was taken to the recovery room in satisfactory condition. FINDINGS AT THE TIME OF SURGERY: Chronic cholecystitis. CC: DO EMELINA Jimenez
== END 2018-07-29 12:00 | disposition home or self-care (01) ==
LOC: SUR 07:26
PROVIDERS: ATTEND Surgery
DX: K80.10 Calculus of gallbladder with chronic cholecystitis without obstruction (principal); I10 Essential (primary) hypertension; J44.9 Chronic obstructive pulmonary disease, unspecified; I20.9 Angina pectoris, unspecified; E03.9 Hypothyroidism, unspecified
CPT/HCPCS: 47562; 00790; 88304; J3010; J2710

== ENCOUNTER 2018-08-26 14:24 | Emergency (ER) | payer MEDICARE, BC ==
[2018-08-26 14:55] LABS: BASO % 0.5 % (0-6); EOS % 3.7 % (0-6); GRAN % 64.4 % (47-80); HEMATOCRIT 46.9 % (35.0-47.0); HEMOGLOBIN 15.8 gm/dl (11.6-16.0); LYMPH % 20.9 % (16-45); MEAN CORPUSCULAR HEMOGLOBIN 30.3 pg (27-33); MEAN CORPUSCULAR HGB CONC 33.7 g/dl (32-36); MEAN PLATELET VOLUME 10.7 fl (7.4-10.4); MONO % 10.5 % (0-9); PLATELET COUNT 292 K/uL (130-400); RED BLOOD COUNT 5.21 M/uL (3.80-5.40); WHITE BLOOD COUNT W/O DIFF 10.6 K/uL (4.2-12.2)
--- NOTE | 2018-08-26 14:59 | Emergency Department Record ---
History of Present Illness - General Chief complaint: Pain Stated complaint: HIP PAIN Time Seen by Provider: 08/26/18 14:40 Source: Patient Mode of Arrival: Ambulatory Limitations: No limitations - History of Present Illness Initial comments: The patient is here due to R hip pain. She tripped and fell about 2.5 weeks ago and injured her pelvic area. She has had some mild R hip pain also and has been walking normally at home. Due to the persistent pain she did see her PCP today who ordered an outpatient R hip xray. The doctor was told the xray demonstrated a hip fx so the patient was sent to the ER. After the official reading it appears the patient has a nondisplaced fx of the R superior and inferior pelvic rami with an osteophytic R hip which was read as neg for fx. Due to the possible fx we will order a CT of the R hip. The patient did drive here today and has been walking on the leg without limping for the last 2.5 weeks. MD Complaint: Joint pain, Other Onset/Timin -: Week(s) - Related Data Allergies Allergy/AdvReac Type Severity Reaction Status Date / Time codeine [CODEINE] Allergy Severe HIVES Verified 08/26/18 14:32 tomato Allergy Severe HIVES Verified 08/26/18 14:32 chocolate flavor Allergy Mild RASH Verified 08/26/18 14:32 strawberry [[place]] Allergy Mild RASH Verified 08/26/18 14:32 Travel Screening - Travel/Exposure Within Last 30 Days Have you traveled within the last 30 days?: No - Travel/Exposure Within Last Year Have you traveled outside the [place] in the last year?: No - Additonal Travel Details Have you been exposed to anyone with a communicable illness?: No - Travel Symptoms Symptom Screening: None Review of Systems Constitutional: Denies: Chills, Fever Eyes: Denies: Eye discharge ENT: Denies: Congestion Respiratory: Denies: Cough, Dyspnea Cardiovascular: Denies: Arrhythmia Endocrine: Denies: Fatigue Gastrointestinal: Denies: Abdominal pain Genitourinary: Denies: Dysuria Musculoskeletal: Denies: Arthralgia, Back pain Skin: Denies: Bruising Past Medical History - SOCIAL HISTORY Smoking Status: Never smoker Alcohol Use: None Drug Use: None - RESPIRATORY Hx Respiratory Disorders: Yes Hx Asthma: Yes (well controlled) Hx Pneumonia: Yes (as baby) - CARDIOVASCULAR Hx Cardio Disorders: Yes Hx Chest Pain: No (DENIES) 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,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) - NEURO Hx Neuro Disorders: Yes Hx Neuropathy: Yes (occas numbness in left hand) - GI Hx GI Disorders: Yes Hx Abdominal Pain: Yes Hx Reflux: Yes Hx Hepatitis/Jaundice: Yes (age 20s-"yellow jaundice") Hx Nausea/Vomiting: Yes Hx of Polyps: Yes - Hx Genitourinary Disorders: No - ENDOCRINE Hx Endocrine Disorders: Yes Hx Thyroid Disease: Yes (hypoactive) - MUSCULOSKELETAL Hx Musculoskeletal Disorders: Yes Hx Arthritis: Yes (arms/hands) Hx Osteoporosis: Yes (TAKES CALCIUM) - PSYCH Hx Psych Problems: No - HEMATOLOGY/ONCOLOGY Hx Hematology/Oncology Disorders: No Family Medical History Any Significant Family History?: Yes Hx Resp Disorders: Father, Mother Physical Exam - General General Appearance: Alert, Oriented x3, Cooperative, No acute distress - Head Head exam: Atraumatic, Normocephalic, Normal inspection - Eye Eye exam: Normal appearance, PERRL - Neck Neck exam: Normal inspection, Full ROM. negative: Tenderness - Respiratory Respiratory exam: Normal lung sounds bilaterally. negative: Respiratory distress - Cardiovascular Cardiovascular Exam: Regular rate, Normal rhythm, Normal heart sounds - GI/Abdominal GI/Abdominal exam: Soft, Normal bowel sounds. negative: Tenderness - Extremities Extremities exam: Normal inspection, Tenderness. negative: Full ROM (There is pain with ROM of the R hip. The R leg is not shortened or rotated.) - Neurological Neurological exam: Alert, Normal gait. negative: Abnormal gait, Motor sensory deficit - Psychiatric Psychiatric exam: negative: Anxious Course Vital Signs 08/26/18 14:25 Temperature 97.9 F Pulse Rate 86 Respiratory 20 Rate Blood Pressure 174/76 Pulse Ox 95 - Reevaluation(s) Reevaluation #1: The patient is doing very well at this time. She is resting comfortably in no pain or discomfort. I did discuss the neg xrays relating to a hip fx but that she does have a pelvic rib fx. She is to take her home pain medicines and is to see her PCP next week. 08/26/18 16:20 Medical Decision Making - Data Complexity MDM Data: Labs Ordered and/or Reviewed, X-Ray Ordered and/or Reviewed - Lab Data Result diagrams: 08/26/18 14:50 08/26/18 14:50 - Radiology Data Radiology results: Report reviewed (CT: Neg for R hip fx, nondisplaced R superior and inferior pubic rami fx's.) Disposition Disposition: Discharge Clinical Impression: Pelvic ring fracture Qualifiers: Encounter type: initial encounter Fracture type: closed Qualified Code(s): S32.810A - Multiple fractures of pelvis with stable disruption of pelvic ring, initial encounter for closed fracture Disposition: Home, Self-Care Condition: (2) Stable Instructions: Pelvic Fracture (ED) Additional Instructions: Please rest when possible and take your home pain medicines as directed. Please see your family doctor next week as planned and return to the ER for any worsening symptoms. Forms: Patient Portal Access Time of Disposition: 16:22 Quality - Quality Measures Quality Measures: N/A - Blood Pressure Screening View Details: Yes Does Patient Have Any of the Following: Active Dx of HTN Blood Pressure Classification: Hypertensive Reading Systolic Measurement: 174 Diastolic Measurement: 76 Screening for High Blood Pressure: Patient Exclusion, Hx of HTN [G9744]
[2018-08-26 15:03] LABS: BLOOD UREA NITROGEN 16 mg/dL (8-23)
[2018-08-26 15:04] LABS: CREATININE 0.9 mg/dL (0.5-0.9); EST GLOMERULAR FILTRATION RATE > 60 mL/min
[2018-08-26 15:06] LABS: GLUCOSE,RANDOM 113 mg/dL (74-109)
--- NOTE | 2018-08-28 09:33 | CT SCAN REPORT ---
EXAM: NONCONTRAST CT OF THE PELVIS HISTORY: RIGHT HIP PAIN, KNOWN PELVIC FRACTURES, RECENT FALL. TECHNIQUE: Noncontrast CT of the pelvis was obtained. Comparison: Pelvic and right hip radiographs 08/26/18, CT of the abdomen and pelvis 12/29/15. FINDINGS: Comminuted acute fracture of the anterior superior right pubic ramus with extension to the pubic body and into the junction of the anterior inferior pubic ramus. Acute nondisplaced fracture of the mid right inferior pubic ramus. No acute proximal right femur fracture is appreciated. No hip joint dislocation. Moderate to marked right femoroacetabular osteoarthrosis with primarily superior joint space narrowing and large circumferential femoral osteophytes. Likely small calcified femoroacetabular joint bodies. Small sclerotic focus near the posterior left acetabulum is similar from 2016 comparison, favor a bone island. Colonic diverticulosis without visible inflammatory changes. Bilobed cystic structure in the right adnexal region measuring 6.4 x 3.1 cm, previously 5.2 x 2.8 cm. IMPRESSION: 1. ACUTE FRACTURES OF THE RIGHT SUPERIOR AND INFERIOR PUBIC RAMI, ABOVE. 2. NO ACUTE FRACTURE OF THE PROXIMAL RIGHT FEMUR IS EVIDENCE BY CT. IF THERE IS CONTINUED CLINICAL CONCERN FOR OCCULT RIGHT HIP FRACTURE, CONSIDER FOLLOW-UP WITH MRI. 3. INCIDENTAL RIGHT ADNEXAL CYSTIC STRUCTURE, MILDLY ENLARGED FROM COMPARISON CT ON 12/29/15. 4. RIGHT FEMOROACETABULAR OSTEOARTHROSIS, ABOVE. JOB NUMBER: [id number] MTDD
== END 2018-08-26 16:41 | disposition home or self-care (01) ==
LOC: ER 14:24
DX: S32.810A Multiple fractures of pelvis with stable disruption of pelvic ring, initial encounter for closed fracture (principal); W01.0XXA Fall on same level from slipping, tripping and stumbling without subsequent striking against object, initial encounter; I10 Essential (primary) hypertension
CPT/HCPCS: 72192; 80048; 85025; 99283; 99284